=== PATIENT | male | born 1955 | race African-American/Black ===

== ENCOUNTER 2017-02-16 11:16 | Outpatient (CLI) ==
[2016-10-18 18:21] VITALS: BMI 22.0
[2017-02-16 11:39] LABS: BASOPHILS % (AUTO) 0.5 % (0.0-3.0); EOSINOPHILS # (AUTO) 0.1 K/ul (0.0-0.7); EOSINOPHILS % (AUTO) 1.3 % (0.0-7.0); HEMATOCRIT 37.5 % (42.0-52.0); IMMATURE GRANULOCYTE % (AUTO) 0.2 % (0.0-5.0); LYMPHOCYTES # (AUTO) 2.9 K/uL (0.60-3.4); LYMPHOCYTES % (AUTO) 51.8 (10.0-50.0); MEAN CORPUSCULAR HEMOGLOBIN 27.6 pg (27.0-31.0); MEAN CORPUSCULAR VOLUME 86.2 fl (80.0-94.0); MONOCYTES # (AUTO) 0.5 K/uL (0.4-2.0); MONOCYTES % (AUTO) 8.2 (0-10); NEUTROPHILS # (AUTO) 2.1 K/ul (2.0-6.9); PLATELET COUNT 225 10^3/uL (140-440); RED BLOOD COUNT 4.35 10^6/ul (4.70-6.10)
[2017-02-16 12:19] LABS: ALBUMIN 3.7 g/dL (3.4-5.0); ALBUMIN/GLOBULIN RATIO 0.82; ANION GAP 12.1; BILIRUBIN,TOTAL 0.57 mg/dL (0.00-1.20); BUN/CREATININE RATIO 9.41; CALCIUM 9.2 mg/dL (8.2-10.2); CHOL/HDL RATIO 4.4 (4.5-6.4); CREATININE 0.85 mg/dL (0.60-1.10); POTASSIUM 4.1 mmol/L (3.5-5.1); TOTAL PROTEIN 8.2 g/dL (6.4-8.2)
--- NOTE | 2017-02-16 12:43 | DI ---
EXAM: Three views of the paranasal sinuses HISTORY: Right orbital headache concerning for sinusitis. COMPARISON: CT head 10/18/2016 FINDINGS: There are no air-fluid levels and a paranasal sinuses. The maxillary sinuses appear clear . The frontal sinuses appear clear. There is mild leftward nasal septal deviation. The osseous st ructures are unremarkable. Limited evaluation of the mastoid air cells demonstrate normal aeration. IMPRESSION: No radiographic evidence of acute sinusitis. The sinus disease identified on prior CT i s not identified on radiograph. Mild leftward nasal septal deviation is present
== END 2017-02-16 11:17 | disposition home or self-care (01) ==
LOC: LAB 11:16
PROVIDERS: ATTEND Emergency Medicine
DX: R51 Headache (principal); I10 Essential (primary) hypertension; R42 Dizziness and giddiness; M06.9 Rheumatoid arthritis, unspecified; Z00.00 Encounter for general adult medical examination without abnormal findings
CPT/HCPCS: 36415; 80053; 80061; 82306; 82607; 83036; 84443; 85025

== ENCOUNTER 2017-05-20 16:04 | Outpatient (CLI) ==
[2016-10-18 18:21] VITALS: BMI 22.0
[2017-05-20 16:17] LABS: BASOPHILS % (AUTO) 0.7 % (0.0-3.0); EOSINOPHILS # (AUTO) 0.1 K/ul (0.0-0.7); HEMOGLOBIN 10.3 g/dl (14.0-18.0); IMMATURE GRANULOCYTE % (AUTO) 0.2 % (0.0-5.0); LYMPHOCYTES # (AUTO) 2.6 K/uL (0.60-3.4); LYMPHOCYTES % (AUTO) 43.9 (10.0-50.0); MEAN CORPUSCULAR HEMOGLOBIN 28.1 pg (27.0-31.0); MEAN CORPUSCULAR HGB CONC 33.2 (31.8-35.4); MEAN CORPUSCULAR VOLUME 84.7 fl (80.0-94.0); MONOCYTES # (AUTO) 0.5 K/uL (0.4-2.0); MONOCYTES % (AUTO) 7.8 (0-10); NEUTROPHILS # (AUTO) 2.7 K/ul (2.0-6.9); NEUTROPHILS % (AUTO) 46.4; PLATELET COUNT 193 10^3/uL (140-440); RED BLOOD COUNT 3.66 10^6/ul (4.70-6.10); WHITE BLOOD COUNT 5.86 K/ul (4.2-10.2)
[2017-05-21 07:17] LABS: LUTEINIZING HORMONE 10.9 mIU/mL (1.7-8.6)
[2017-05-23 06:57] LABS: FOLLICLE STIMULATING HORMONE 12.4 mIU/mL (1.5-12.4); TESTOSTERONE 439 ng/dL (348-1197)
== END 2017-05-20 16:05 | disposition home or self-care (01) ==
LOC: LAB 16:04
PROVIDERS: ATTEND Emergency Medicine
DX: H60.392 Other infective otitis externa, left ear (principal); N52.1 Erectile dysfunction due to diseases classified elsewhere
CPT/HCPCS: 36415; 83001; 83002; 84403; 84443; 85025

== ENCOUNTER 2017-06-30 15:19 | Outpatient (CLI) ==
[2016-10-18 18:21] VITALS: BMI 22.0
--- NOTE | 2017-06-30 16:08 | CT ---
EXAM: CT of the lumbar spine without contrast History: Lower back pain. Comparison: Lumbar spine CT 02/25/2016 Technique: Multiplanar CT images through the lumbar spine were obtained without the administration o f IV contrast Findings: Dependent atelectasis within the visualized lung bases. Left renal cyst again noted. L5 pars defects with stable minimal anterolisthesis of L5 on S1. No change in the mild to moderate degenerative disc disease at L4-L5 with endplate sclerosis, osteophyte formation and vacuum disc phe nomenon. Erosions involving the bilateral sacroiliac joints. No acute fracture or subluxation of the lumbar spine. T12-L1: No significant disc bulge, central canal stenosis or neural foraminal narrowing. L1-L2: No significant disc bulge, central canal stenosis or neural foraminal narrowing. L2-L3: No significant disc bulge, central canal stenosis or neural foraminal narrowing. L3-L4: Small disc bulge effacing the anterior thecal sac with no significant central canal stenosis . Moderate bilateral bony neural foraminal narrowing secondary to ligamentous and facet hypertrophy . L4-L5: Small disc bulge effacing the anterior thecal sac with no significant central canal stenosis . Moderate bilateral bony neural foraminal narrowing secondary to ligamentous and facet hypertrophy . L5-S1: Small disc bulge with no significant central canal stenosis. Severe bilateral bony neural f oraminal narrowing secondary to ligamentous and facet hypertrophy. Impression: 1. No acute fracture of the lumbar spine. 2. Bilateral sacroiliitis. 3. Level by level analysis as detailed above.
== END 2017-06-30 15:20 | disposition home or self-care (01) ==
LOC: RAD 15:19
PROVIDERS: ATTEND Emergency Medicine
DX: M47.26 Other spondylosis with radiculopathy, lumbar region (principal)

== ENCOUNTER 2018-07-19 07:01 | Outpatient (CLI) ==
[2016-10-18 18:21] VITALS: BMI 22.0
== END 2018-07-19 07:02 | disposition home or self-care (01) ==
LOC: LAB 07:01
PROVIDERS: ATTEND Emergency Medicine
DX: N52.1 Erectile dysfunction due to diseases classified elsewhere (principal); M47.26 Other spondylosis with radiculopathy, lumbar region; M05.79 Rheumatoid arthritis with rheumatoid factor of multiple sites without organ or systems involvement; E78.5 Hyperlipidemia, unspecified; Z12.5 Encounter for screening for malignant neoplasm of prostate
CPT/HCPCS: 36415; 80053; 80061; 84443; 85025

== ENCOUNTER 2018-09-29 11:39 | Outpatient (CLI) ==
[2016-10-18 18:21] VITALS: BMI 22.0
== END 2018-09-29 11:40 | disposition home or self-care (01) ==
LOC: LAB 11:39
PROVIDERS: ATTEND Nurse Practitioner Family
DX: E78.5 Hyperlipidemia, unspecified (principal); Z82.49 Family history of ischemic heart disease and other diseases of the circulatory system
CPT/HCPCS: 36415; 80053; 85025

== ENCOUNTER 2019-04-20 10:49 | Outpatient (CLI) ==
[2016-10-18 18:21] VITALS: BMI 22.0
== END 2019-04-20 10:50 | disposition home or self-care (01) ==
LOC: RHC-LAB 10:49 → FCC-LAB 10:50
PROVIDERS: ATTEND Nurse Practitioner Family
DX: M05.9 Rheumatoid arthritis with rheumatoid factor, unspecified (principal); G89.29 Other chronic pain
CPT/HCPCS: 80306